=== PATIENT | male | born 1930 | race Caucasian/White ===

== ENCOUNTER → 2017-07-10 | Outpatient (CLI) | payer MEDICARE, OTHER ==
[~2017-07-10] MED LIST: ACHD5005 PO; ASPI-586 PO; BUDE10.22 IH; CEPH-507 PO; FAMO20TA3 PO; FLUT9.9S NS; GABA-488 PO; LEVO125T6 PO; LOSA100T28 PO; MAGN250T13 PO; METO50TA15 PO; MONT10TA21 PO; MULT-35 PO; OMEG1CAP24 PO; RT-ALBUINH IH; SIMV20TA3 PO; SPIR25TA3 PO; TRAM50TA2 PO
--- NOTE | 2017-07-12 09:58 | Diagnostic Imaging Report ---
EXAMINATION: PET/CT INDICATION: Left-sided neck mass TECHNIQUE: PET/CT imaging was obtained from the base of the skull through the pelvis after the administration of 11.35 mCi of F-[address] imaging was utilized for localization and attenuation correction purposes. The low energy CT utilized for attenuation correction is not considered to be of high enough spatial resolution to allow in and of itself a separate anatomical analysis. 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 There are no previous studies available for comparison. There is a 2.3 x 3.0 cm fairly well-defined soft tissue mass along the posterior aspect of the mandibular ramus and along the inferior margin of the parotid gland on the left.. This mass is hypermetabolic with a maximum SUV of 6.2 and should be considered neoplastic until proven otherwise. There is a second much smaller 1.0 x 1.0 cm nodule contiguous with the inferior margin of the parotid gland. This has a maximum SUV of 4.5. Just anterior and medial to the larger mass, there is a smaller less intense area of increased metabolic activity. This nodule measures 1.2 x 1.6 cm and has a maximum SUV of 3.5. Both of these findings should be considered neoplastic, as well. There is no other hypermetabolic activity identified to suggest the presence of malignancy. There is physiologic activity in the brain, the heart, the bowel, the kidneys and the bladder. The CT images do show postsurgical changes involving the inferior margin of the mandible and the left parotid gland. The images through the thorax show the heart is enlarged and there is coronary artery disease. There are chronic pulmonary changes evident but there is no sign of an acute cardiopulmonary abnormality. The images through the abdomen and pelvis are also unremarkable for an acute abnormality. There are innumerable diverticula involving the sigmoid and descending colon. There is no evidence for acute diverticulitis but the rectosigmoid portion of the colon is obscured by artifact related to the patient's bilateral total hip prostheses. The intracranial structures, where visualized, are unremarkable. There is mucosal thickening in the right maxillary antrum. IMPRESSION: 1. There is a 2 x 2 by 3.0 cm hypermetabolic mass along the posterior aspect of the left mandible and just inferior to the left parotid gland. There are 2 other smaller hypermetabolic nodules in this region, as well. All of these findings should be considered neoplastic until proven otherwise. 2. There is no other hypermetabolic activity to suggest the presence of malignancy. 3. There is no acute abnormality identified. 4. There is cardiomegaly and coronary artery disease as well as chronic pulmonary disease. 5. There is extensive diverticulosis of the sigmoid and distal descending colon. Dictated by: Dictated on workstation # [id number]
== END ==
LOC: RAD 10:25
PROVIDERS: ATTEND Otolaryngology Plastic Surgery within the Head & Neck
DX: C44.299 Other specified malignant neoplasm of skin of left ear and external auricular canal (principal); I51.7 Cardiomegaly; I25.10 Atherosclerotic heart disease of native coronary artery without angina pectoris; J44.9 Chronic obstructive pulmonary disease, unspecified; K57.30 Diverticulosis of large intestine without perforation or abscess without bleeding; Z96.643 Presence of artificial hip joint, bilateral

== ENCOUNTER 2017-09-20 02:45 | Outpatient (RCR) | payer MEDICARE, OTHER ==
[2017-07-30 14:33] LABS: BASOPHILS % (AUTO) 0 % (0-10); EOSINOPHILS # (AUTO) 0.1 10^3/uL (0.0-0.3); EOSINOPHILS % (AUTO) 1 % (0-10); HEMATOCRIT 31 % (40-54); HEMOGLOBIN 9.3 G/DL (13.3-17.7); LYMPHOCYTES # (AUTO) 2.4 X 10^3 (1.0-4.0); LYMPHOCYTES % (AUTO) 22 % (12-44); MEAN CORPUSCULAR HEMOGLOBIN 26 PG (25-34); MEAN CORPUSCULAR HGB CONC 30 G/DL (32-36); MEAN CORPUSCULAR VOLUME 87 FL (80-99); MEAN PLATELET VOLUME 11.4 FL (7.4-10.4); MONOCYTES # (AUTO) 5.7 X 10^3 (0.0-1.0); MONOCYTES % (AUTO) 54 % (0-12); NEUTROPHILS # (AUTO) 2.3 X 10^3 (1.8-7.8); NEUTROPHILS % (AUTO) 22 % (42-75); PLATELET COUNT 101 10^3/uL (130-400); RED BLOOD COUNT 3.55 10^6/uL (4.35-5.85); RED CELL DISTRIBUTION WIDTH 16.4 % (10.0-14.5); WHITE BLOOD COUNT 10.5 10^3/uL (4.3-11.0)
[2017-07-30 14:50] LABS: ALANINE AMINOTRANSFERASE 11 U/L (0-55); ALBUMIN 4.1 GM/DL (3.2-4.5); ALKALINE PHOSPHATASE 98 U/L (40-136); BUN/CREATININE RATIO 13; CALCIUM 9.7 MG/DL (8.5-10.1); CARBON DIOXIDE 25 MMOL/L (21-32); CHLORIDE 102 MMOL/L (98-107); CREATININE SERUM 1.03 MG/DL (0.60-1.30); GFR ESTIMATED > 60; GLUCOSE 106 MG/DL (70-105); POTASSIUM 3.9 MMOL/L (3.6-5.0); SODIUM 137 MMOL/L (135-145); TOTAL PROTEIN 7.9 GM/DL (6.4-8.2)
[~2017-09-20 02:45] MED LIST changes: -SPIR25TA3 PO; +SPIR25TA5 PO
== END 2017-10-11 | disposition home or self-care (01) ==
LOC: ONC 02:45
PROVIDERS: ATTEND Internal Medicine Hematology & Oncology
DX: Z51.0 Encounter for antineoplastic radiation therapy (principal); C44.229 Squamous cell carcinoma of skin of left ear and external auricular canal; C77.0 Secondary and unspecified malignant neoplasm of lymph nodes of head, face and neck; J98.4 Other disorders of lung; E07.9 Disorder of thyroid, unspecified; Z79.02 Long term (current) use of antithrombotics/antiplatelets; Z79.82 Long term (current) use of aspirin; Z79.899 Other long term (current) drug therapy
CPT/HCPCS: 77290; 77300; 77301; 77307; 77334; 77336; 77338; 77386; 80053; 85025; 99204; 99214

== ENCOUNTER 2017-10-25 13:28 | Outpatient (RCR) | payer MEDICARE, OTHER ==
[2017-10-25 14:58] LABS: BASOPHILS % (AUTO) 0 % (0-10); EOSINOPHILS % (AUTO) 1 % (0-10); HEMATOCRIT 32 % (40-54); LYMPHOCYTES % (AUTO) 16 % (12-44); MEAN CORPUSCULAR HEMOGLOBIN 27 PG (25-34); MEAN CORPUSCULAR HGB CONC 31 G/DL (32-36); MEAN CORPUSCULAR VOLUME 88 FL (80-99); MEAN PLATELET VOLUME 12.6 FL (7.4-10.4); MONOCYTES # (AUTO) 3.2 X 10^3 (0.0-1.0); MONOCYTES % (AUTO) 50 % (0-12); NEUTROPHILS # (AUTO) 2.2 X 10^3 (1.8-7.8); NEUTROPHILS % (AUTO) 34 % (42-75); PLATELET COUNT 76 10^3/uL (130-400); RED BLOOD COUNT 3.66 10^6/uL (4.35-5.85); WHITE BLOOD COUNT 6.3 10^3/uL (4.3-11.0)
[2017-10-25 15:19] LABS: BILIRUBIN,TOTAL 0.7 MG/DL (0.1-1.0); CALCIUM 10.1 MG/DL (8.5-10.1); CREATININE SERUM 1.19 MG/DL (0.60-1.30); POTASSIUM 3.9 MMOL/L (3.6-5.0)
== END 2017-11-23 09:15 | disposition home or self-care (01) ==
LOC: ONC 13:28
PROVIDERS: ATTEND Internal Medicine Hematology & Oncology
DX: C44.229 Squamous cell carcinoma of skin of left ear and external auricular canal (principal); C77.0 Secondary and unspecified malignant neoplasm of lymph nodes of head, face and neck; J98.4 Other disorders of lung; E07.9 Disorder of thyroid, unspecified; Z79.02 Long term (current) use of antithrombotics/antiplatelets; Z79.82 Long term (current) use of aspirin; Z79.899 Other long term (current) drug therapy
CPT/HCPCS: 36415; 80053; 85025; 99214

== ENCOUNTER → 2017-10-29 | Outpatient (CLI) | payer MEDICARE, OTHER ==
[~2017-10-29] MED LIST changes: +GADOBUTROL 10 MMOL/10 ML (GADAVIST) VIAL IV ONE
--- NOTE | 2017-10-29 13:10 | Diagnostic Imaging Report ---
INDICATION: Posterior neck pain. FINDINGS: Five views of the cervical spine show normal height and alignment of the vertebral bodies. There is disc space narrowing at C3-C4. There is disc space narrowing and spondylosis at C4-C5, C5-C6, and C6-C7. There is some mild narrowing of the spinal canal in the lower cervical levels. No fracture or other acute bony abnormality is seen. IMPRESSION: There are moderate degenerative changes present with no acute abnormality seen. Dictated by: Dictated on workstation # [id number]
--- NOTE | 2017-10-29 13:15 | Diagnostic Imaging Report ---
INDICATION: Posterior neck pain. Melanoma. FINDINGS: Single lateral view of the soft tissue of the neck shows degenerative changes of the spine with no acute bony lesions. Surgical clips are seen anteriorly. There is no prevertebral soft tissue swelling. The epiglottis is normal. IMPRESSION: No acute abnormality is seen. Dictated by: Dictated on workstation # [id number]
--- NOTE | 2017-10-29 13:57 | Diagnostic Imaging Report ---
PROCEDURE: MR imaging of the brain with and without contrast. TECHNIQUE: Multiplanar, multisequence MR imaging of the brain was performed with and without contrast. INDICATION: Headache, dizziness and history of melanoma. FINDINGS: There is prominence of ventricles and sulci. There are multifocal areas of abnormal increased T2 signal intensity within the periventricular white matter subcortical white matter bilaterally. There is some focal gliosis in the parietal lobe. There are no areas of diffusion restriction appreciated to suggest an acute CVA. There is no intracranial mass, hemorrhage or extra-axial fluid collection. There are no abnormal areas of contrast enhancement. The frontal, ethmoid, sphenoid and maxillary sinuses are clear. The mastoid air cells are clear. The globes and intraorbital structures are unremarkable. The central, arterial and dural venous sinus flow voids are preserved. 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 Otherwise unremarkable MRI brain. Dictated by: Dictated on workstation # [id number]
== END ==
LOC: RAD 12:29
PROVIDERS: ATTEND Internal Medicine Hematology & Oncology
DX: C31.9 Malignant neoplasm of accessory sinus, unspecified (principal); I67.82 Cerebral ischemia; M47.812 Spondylosis without myelopathy or radiculopathy, cervical region; G31.9 Degenerative disease of nervous system, unspecified; M19.90 Unspecified osteoarthritis, unspecified site
CPT/HCPCS: 70360; 70553; 72040

== ENCOUNTER 2017-11-23 14:10 | Outpatient (RCR) | payer MEDICARE, OTHER ==
[~2017-11-23 14:10] MED LIST changes: -GADOBUTROL 10 MMOL/10 ML (GADAVIST) VIAL IV ONE; -LOSA100T28 PO; +LOSA100T8 PO
== END 2017-12-07 | disposition home or self-care (01) ==
LOC: ONC 14:10
PROVIDERS: ATTEND Internal Medicine Hematology & Oncology
DX: C44.229 Squamous cell carcinoma of skin of left ear and external auricular canal (principal); C77.0 Secondary and unspecified malignant neoplasm of lymph nodes of head, face and neck; J98.4 Other disorders of lung; E07.9 Disorder of thyroid, unspecified; Z79.02 Long term (current) use of antithrombotics/antiplatelets; Z79.82 Long term (current) use of aspirin; Z79.899 Other long term (current) drug therapy
CPT/HCPCS: 99213

== ENCOUNTER 2018-01-23 13:33 | Outpatient (RCR) | payer MEDICARE, OTHER ==
[2018-01-23 13:46] LABS: BASOPHILS % (AUTO) 0 % (0-10); EOSINOPHILS # (AUTO) 0.1 10^3/uL (0.0-0.3); EOSINOPHILS % (AUTO) 0 % (0-10); HEMATOCRIT 29 % (40-54); HEMOGLOBIN 9.3 G/DL (13.3-17.7); LYMPHOCYTES % (AUTO) 16 % (12-44); MEAN CORPUSCULAR HEMOGLOBIN 30 PG (25-34); MEAN CORPUSCULAR HGB CONC 32 G/DL (32-36); MEAN CORPUSCULAR VOLUME 92 FL (80-99); MEAN PLATELET VOLUME 10.9 FL (7.4-10.4); MONOCYTES # (AUTO) 3.4 X 10^3 (0.0-1.0); MONOCYTES % (AUTO) 28 % (0-12); NEUTROPHILS # (AUTO) 6.8 X 10^3 (1.8-7.8); NEUTROPHILS % (AUTO) 56 % (42-75); PLATELET COUNT 98 10^3/uL (130-400); RED BLOOD COUNT 3.14 10^6/uL (4.35-5.85); RED CELL DISTRIBUTION WIDTH 19.4 % (10.0-14.5); WHITE BLOOD COUNT 12.3 10^3/uL (4.3-11.0)
[2018-01-23 14:04] LABS: ALBUMIN 3.7 GM/DL (3.2-4.5); BILIRUBIN,TOTAL 1.6 MG/DL (0.1-1.0); CALCIUM 9.2 MG/DL (8.5-10.1); CREATININE SERUM 1.23 MG/DL (0.60-1.30); POTASSIUM 3.8 MMOL/L (3.6-5.0); TOTAL PROTEIN 6.9 GM/DL (6.4-8.2)
[2018-01-24 11:01] LABS: ABSOLUTE RETIC # 259 10e9/L (24-90); RETICULOCYTE % 8.03 % (0.50-2.40)
[2018-01-24 11:37] LABS: BAND NEUTROPHILS 3 %; BASOPHILS % (MANUAL) 0 %; EOSINOPHILS % (MANUAL) 0 %; LYMPHOCYTES % (MANUAL) 13 %; MONOCYTES % (MANUAL) 22 %; MYELOCYTES % 2 %; NEUTROPHILS % (MANUAL) 60 %
[2018-01-24 11:38] LABS: ANISOCYTOSIS MODERATE; POLYCHROMASIA SLIGHT
== END 2018-02-14 14:55 | disposition home or self-care (01) ==
LOC: ONC 13:33
PROVIDERS: ATTEND Internal Medicine Hematology & Oncology
DX: C44.229 Squamous cell carcinoma of skin of left ear and external auricular canal (principal); C77.0 Secondary and unspecified malignant neoplasm of lymph nodes of head, face and neck; J98.4 Other disorders of lung; E07.9 Disorder of thyroid, unspecified; R51 Headache; D64.9 Anemia, unspecified; D69.6 Thrombocytopenia, unspecified; R74.0 Nonspecific elevation of levels of transaminase and lactic acid dehydrogenase [LDH]; Z79.899 Other long term (current) drug therapy; Z79.02 Long term (current) use of antithrombotics/antiplatelets; Z79.82 Long term (current) use of aspirin
CPT/HCPCS: 36415; 80053; 82607; 82728; 82746; 83540; 85007; 85025; 85027; 85045; 99213